=== PATIENT | female | born 1995 | race African-American/Black ===

== ENCOUNTER 2016-12-04 02:02 | Observation (INO) | payer MEDICAID ==
[~2016-12-04] VITALS: Ht 165.1 cm; Wt 72.6 kg
[2016-12-04] MEDS ORDERED: TERBUTALINE SULFATE 1MG/ML VIAL SUBCUT PRN (03:00)
[2016-12-04] MEDS ORDERED: LACTATED RINGERS 1,000 ML IV SCH (03:00)
[2016-12-04 03:06] LABS: CLARITY URINE CLOUDY (CLEAR); COLOR URINE YELLOW (YELLOW); GLUCOSE URINE NEGATIVE (NEGATIVE); KETONES URINE NEGATIVE (NEGATIVE); LEUKOCYTE ESTERASE URINE 3+ (NEGATIVE); NITRITE URINE NEGATIVE (NEGATIVE); OCCULT BLOOD URINE NEGATIVE (NEGATIVE); PROTEIN URINE NEGATIVE (NEGATIVE); SPECIFIC GRAVITY URINE 1.011 (1.005-1.030); UROBILINOGEN URINE 0.2 E.U./dL (0.2-1.0)
[2016-12-04 04:10] LABS: SQUAMOUS EPITHELIAL CELL URINE 3+ /lpf (RARE/1+)
[2016-12-04 04:12] LABS: RBC URINE 0-2 /hpf (0-2)
[2016-12-04 04:14] LABS: BACTERIA URINE 2+
[2016-12-04] MEDS ORDERED: CEFAZOLIN SODIUM 1000MG/VIAL IV ONE (04:30)
[2016-12-04] MEDS ORDERED: CEFAZOLIN 2000MG PREMIX 100 ML IV ONE (04:45)
[2016-12-04] MEDS ORDERED: CEFAZOLIN 2000MG in DEXTROSE 5% WATER 100ML IV NR (04:45)
== END 2016-12-04 05:20 | disposition home or self-care (01) ==
LOC: L&D 02:02
PROVIDERS: ADMIT Obstetrics & Gynecology; ATTEND Obstetrics & Gynecology
DX: O26.893 Other specified pregnancy related conditions, third trimester (principal); R10.30 Lower abdominal pain, unspecified; M54.9 Dorsalgia, unspecified; Z3A.38 38 weeks gestation of pregnancy
CPT/HCPCS: 76805; 76818; 81001; 96365; 96372; G0378; J0690; J3105; J7120; 96360; 96361; J7060

== ENCOUNTER 2017-05-24 12:08 | Emergency (ER) | payer MEDICAID ==
[~2017-05-24] VITALS: Ht 165.1 cm; Wt 77.0 kg
[2017-05-24] MEDS ORDERED: FAMOTIDINE 20MG/2ML VIAL IV STA (18:12)
[2017-05-24] MEDS ORDERED: MAGNESIUM/ALUMINUM HYDROXIDE/SIMETHICONE 30ML UDC PO STA (18:12)
[2017-05-24] MEDS ORDERED: ONDANSETRON HCL 4MG/2ML VIAL IV STA (18:12)
[2017-05-24] MEDS ORDERED: SODIUM CHLORIDE 0.9% 1,000 ML IV ONE (18:12)
[2017-05-24 19:21] LABS: CLARITY URINE TURBID (CLEAR); COLOR URINE YELLOW (YELLOW); GLUCOSE URINE NEGATIVE (NEGATIVE); KETONES URINE 4+ (NEGATIVE); LEUKOCYTE ESTERASE URINE 2+ (NEGATIVE); NITRITE URINE NEGATIVE (NEGATIVE); OCCULT BLOOD URINE 2+ (NEGATIVE); PROTEIN URINE 1+ (NEGATIVE); SPECIFIC GRAVITY URINE 1.043 (1.005-1.030); UROBILINOGEN URINE 0.2 E.U./dL (0.2-1.0)
[2017-05-24 19:25] LABS: BASOPHILS % 0.4 % (0.0-2.0); EOSINOPHILS % 0.2 % (0.0-5.0); HEMATOCRIT. 31.3 % (36.0-48.0); HEMOGLOBIN. 10.3 g/dL (12.0-16.0); LYMPHOCYTES % 20.2 % (20.0-50.0); MEAN CORPUSCULAR HEMOGLOBIN 25.8 pg (28.0-32.0); MEAN CORPUSCULAR VOLUME 78.4 fL (81.0-99.0); MEAN PLATELET VOLUME 7.8 fl (7.4-10.4); MONOCYTES % 3.2 % (2.0-8.0); PLATELET 298 x1000/uL (130-400); RED CELL DISTRIBUTION WIDTH 20.8 % (11.6-14.6)
[2017-05-24 19:29] LABS: CHLORIDE 105 mEq/L (98-107)
[2017-05-24 19:30] LABS: HCG SCREEN POSITIVE
[2017-05-24 19:35] LABS: CARBON DIOXIDE 22 mEq/L (21-32)
[2017-05-24 21:21] VITALS: BP 110/62
== END 2017-05-24 21:22 | disposition home or self-care (01) ==
LOC: ER 12:08
DX: O23.40 Unspecified infection of urinary tract in pregnancy, unspecified trimester (principal); O21.0 Mild hyperemesis gravidarum; O99.019 Anemia complicating pregnancy, unspecified trimester; D50.9 Iron deficiency anemia, unspecified; O26.899 Other specified pregnancy related conditions, unspecified trimester; J45.909 Unspecified asthma, uncomplicated; Z3A.00 Weeks of gestation of pregnancy not specified
CPT/HCPCS: 36415; 80053; 80307; 80329; 81001; 83690; 84703; 85025; 96361; 96374; 96375; 99285; J2405; J3490; J7030; Z7610

== ENCOUNTER 2017-06-22 23:36 | Observation (INO) | payer MEDICAID ==
[~2017-06-22] VITALS: Ht 165.1 cm; Wt 59.0 kg
[2017-06-23] MEDS ORDERED: SODIUM CHLORIDE 0.9% 1,000 ML IV SCH (00:30)
[2017-06-23] MEDS ORDERED: ACETAMINOPHEN 500MG TABLET PO NR (00:30)
[2017-06-23 01:45] LABS: CLARITY URINE CLEAR (CLEAR); COLOR URINE YELLOW (YELLOW); GLUCOSE URINE NEGATIVE (NEGATIVE); KETONES URINE TRACE (NEGATIVE); LEUKOCYTE ESTERASE URINE 2+ (NEGATIVE); NITRITE URINE NEGATIVE (NEGATIVE); OCCULT BLOOD URINE NEGATIVE (NEGATIVE); PROTEIN URINE NEGATIVE (NEGATIVE); SPECIFIC GRAVITY URINE 1.029 (1.005-1.030)
[2017-06-23] MEDS ORDERED: ACETAMINOPHEN WITH CODEINE 300/30MG TABLET PO NR (02:30)
[2017-06-23 02:45] VITALS: BP 102/70
[2017-06-23] MEDS ORDERED: CEFAZOLIN 2,000 MG in DEXT 5% WATER 100 ML IV NR (04:00)
== END 2017-06-23 04:15 | disposition home or self-care (01) ==
LOC: L&D 23:36
PROVIDERS: ADMIT Specialist; ATTEND Specialist
DX: O26.892 Other specified pregnancy related conditions, second trimester (principal); R10.30 Lower abdominal pain, unspecified; R10.9 Unspecified abdominal pain; Z3A.19 19 weeks gestation of pregnancy
CPT/HCPCS: 76805; 76817; 81001; 87086; 96361; 96365; 99281; G0378; J0690; J7030; 96360; J7060; J7120

== ENCOUNTER 2017-09-18 11:57 | Emergency (ER) | payer MEDICAID ==
[~2017-09-18] VITALS: Ht 167.6 cm; Wt 65.0 kg
[2017-09-18] MEDS ORDERED: ONDANSETRON HCL 4MG/2ML VIAL IV STA (14:23)
[2017-09-18] MEDS ORDERED: SODIUM CHLORIDE 0.9% 1,000 ML IV ONE (14:23)
[2017-09-18] MEDS ORDERED: ACETAMINOPHEN 325MG TABLET PO ONE (14:30)
[2017-09-18 15:13] LABS: BASOPHILS % 0.7 % (0.0-2.0); EOSINOPHILS % 0.6 % (0.0-5.0); HEMATOCRIT. 27.7 % (36.0-48.0); HEMOGLOBIN. 8.8 g/dL (12.0-16.0); LYMPHOCYTES % 11.6 % (20.0-50.0); MEAN CORPUSCULAR HEMOGLOBIN 22.6 pg (28.0-32.0); MEAN CORPUSCULAR VOLUME 71.7 fL (81.0-99.0); MEAN PLATELET VOLUME 7.9 fl (7.4-10.4); MONOCYTES % 5.1 % (2.0-8.0); PLATELET 196 x1000/uL (130-400); RED BLOOD CELL COUNT 3.87 mill/uL (4.2-5.4); RED CELL DISTRIBUTION WIDTH 16.8 % (11.6-14.6)
[2017-09-18 15:18] LABS: CHLORIDE 101 mEq/L (98-107)
[2017-09-18] MEDS ORDERED: OSELTAMIVIR 75MG CAPSULE PO ONE (16:30)
[2017-09-18 16:41] LABS: CLARITY URINE CLOUDY (CLEAR); COLOR URINE DARK YELLOW (YELLOW); KETONES URINE 4+ (NEGATIVE); LEUKOCYTE ESTERASE URINE 3+ (NEGATIVE); NITRITE URINE NEGATIVE (NEGATIVE); OCCULT BLOOD URINE NEGATIVE (NEGATIVE); PROTEIN URINE 1+ (NEGATIVE); SPECIFIC GRAVITY URINE 1.035 (1.005-1.030)
[2017-09-18 17:04] VITALS: BP 110/72
== END 2017-09-18 19:14 | disposition home or self-care (01) ==
LOC: ER 12:07
DX: O26.93 Pregnancy related conditions, unspecified, third trimester (principal); J10.1 Influenza due to other identified influenza virus with other respiratory manifestations; O21.8 Other vomiting complicating pregnancy; E86.0 Dehydration; J45.909 Unspecified asthma, uncomplicated; O23.43 Unspecified infection of urinary tract in pregnancy, third trimester; Z3A.32 32 weeks gestation of pregnancy
CPT/HCPCS: 36415; 80053; 81001; 83690; 85025; 87040; 87086; 87804; 96361; 96374; 99284; J2405; J7030

== ENCOUNTER 2017-10-13 18:22 | Observation (INO) | payer MEDICAID ==
[~2017-10-13] VITALS: Ht 65 cm; Wt 65.8 kg
[2017-10-13] MEDS ORDERED: SODIUM CHLORIDE 0.9% 1,000 ML IV SCH (19:15)
== END 2017-10-13 21:45 | disposition home or self-care (01) ==
LOC: L&D 18:22
PROVIDERS: ADMIT Specialist; ATTEND Specialist
DX: O62.9 Abnormality of forces of labor, unspecified (principal); Z3A.36 36 weeks gestation of pregnancy
CPT/HCPCS: 99281; G0378; J7030

== ENCOUNTER 2017-11-01 01:20 | Observation (INO) | payer MEDICAID ==
[~2017-11-01] VITALS: Ht 165.1 cm; Wt 65.8 kg
== END 2017-11-01 02:25 | disposition home or self-care (01) ==
LOC: L&D 01:20
PROVIDERS: ADMIT Obstetrics & Gynecology; ATTEND Obstetrics & Gynecology
DX: O26.893 Other specified pregnancy related conditions, third trimester (principal); R10.9 Unspecified abdominal pain; Z3A.38 38 weeks gestation of pregnancy
CPT/HCPCS: 99281; G0378

== ENCOUNTER 2017-11-05 22:56 | Observation (INO) | payer MEDICAID ==
[~2017-11-05] VITALS: Ht 165.1 cm; Wt 70.3 kg
== END 2017-11-06 01:55 | disposition home or self-care (01) ==
LOC: L&D 22:56
PROVIDERS: ADMIT Obstetrics & Gynecology; ATTEND Obstetrics & Gynecology
DX: O62.9 Abnormality of forces of labor, unspecified (principal); Z3A.39 39 weeks gestation of pregnancy
CPT/HCPCS: 76805; 76818; 99281; G0378

== ENCOUNTER 2017-11-06 11:04 | Inpatient (IN) | payer MEDICAID ==
[~2017-11-06] VITALS: Ht 165.1 cm; Wt 68.0 kg
[2017-11-06] MEDS ORDERED: LACTATED RINGERS 1,000 ML IV SCH ×2 (12:35→15:00)
[2017-11-06] MEDS ORDERED: CARBOPROST TROMETHAMINE 250 MCG/ML AMPUL IM PRN (12:45)
[2017-11-06] MEDS ORDERED: LIDOCAINE HCL 1% 20ML VIAL (Pyxis) INJ INFIL SCH (12:45)
[2017-11-06] MEDS ORDERED: PENICILLIN G POTASSIUM 5 MMU in DEXT 5% WATER 100 ML IV SCH (12:45)
[2017-11-06] MEDS ORDERED: NALOXONE HCL 0.4 MG/ML 1ML VIAL IM PRN (12:45)
[2017-11-06] MEDS ORDERED: BUTORPHANOL TARTRATE 2 MG/ML VIAL IV PRN (12:45)
[2017-11-06] MEDS ORDERED: METHYLERGONOVINE MALEATE 0.2 MG/ML IM PRN ×2 (12:45→19:00)
[2017-11-06 13:13] LABS: BASOPHILS % 0.7 % (0.0-2.0); CLARITY URINE CLOUDY (CLEAR); COLOR URINE YELLOW (YELLOW); EOSINOPHILS % 1.4 % (0.0-5.0); HEMATOCRIT. 27.8 % (36.0-48.0); HEMOGLOBIN. 8.9 g/dL (12.0-16.0); KETONES URINE NEGATIVE (NEGATIVE); LEUKOCYTE ESTERASE URINE 3+ (NEGATIVE); LYMPHOCYTES % 15.3 % (20.0-50.0); MEAN CORPUSCULAR HEMOGLOBIN 22.1 pg (28.0-32.0); MEAN CORPUSCULAR VOLUME 68.8 fL (81.0-99.0); MEAN PLATELET VOLUME 7.9 fl (7.4-10.4); MONOCYTES % 4.9 % (2.0-8.0); NEUTROPHILS % 77.7 % (40.0-76.0); NITRITE URINE NEGATIVE (NEGATIVE); OCCULT BLOOD URINE 1+ (NEGATIVE); PLATELET 352 x1000/uL (130-400); PROTEIN URINE NEGATIVE (NEGATIVE); RED BLOOD CELL COUNT 4.04 mill/uL (4.2-5.4); SPECIFIC GRAVITY URINE 1.014 (1.005-1.030); UROBILINOGEN URINE 0.2 E.U./dL (0.2-1.0)
[2017-11-06 13:20] LABS: INR 0.9; PARTIAL THROMBOPLASTIN TIME 24.8 sec (23.4-31.0); PROTHROMBIN TIME 9.4 sec (9.4-11.6)
[2017-11-06 13:23] LABS: CHLORIDE 105 mEq/L (98-107)
[2017-11-06 13:42] LABS: PLATELET ESTIMATE NORMAL
[2017-11-06 13:45] LABS: *AMPHETAMINES SCREEN URINE NEGATIVE (NEGATIVE); *BARBITURATES SCREEN URINE NEGATIVE (NEGATIVE); *BENZODIAZEPINES SCREEN URINE NEGATIVE (NEGATIVE); *COCAINE SCREEN URINE NEGATIVE (NEGATIVE); CANNABINOID URINE SCREEN NEGATIVE (NEGATIVE); METHADONE URINE SCREEN NEGATIVE (NEGATIVE); OPIATES URINE SCREEN NEGATIVE (NEGATIVE); PHENCYCLIDINE URINE SCREEN NEGATIVE (NEGATIVE)
[2017-11-06] MEDS ORDERED: FENTANYL CITRATE/PF 50MCG/ML 5ML VIAL ONE (13:46)
[2017-11-06] MEDS ORDERED: BUPIVACAINE HCL/NS/PF EPIDURAL 100 ML EP ONE (13:46)
[2017-11-06] MEDS ORDERED: BUPIVACAINE HCL/PF 0.25% (2.5MG/ML) 10ML ONE (13:46)
[2017-11-06] MEDS ORDERED: BUPIVACAINE HCL/NS/PF EPIDURAL 100 ML EP SCH (14:00)
[2017-11-06 14:02] LABS: RUBELLA IGG 8.2 IU/mL (4.99-10)
[2017-11-06 14:03] LABS: HEPATITIS B SURFACE ANTIGEN NEGATIVE
[2017-11-06] MEDS ORDERED: DEXT 5%/LR + PITOCIN 20UNITS/L 1,000 ML IV SCH ×2 (14:59→19:24)
[2017-11-06] MEDS ORDERED: LIDOCAINE HCL/PF 2% 20 MG/ML 10ML VIAL ONE (15:14)
[2017-11-06] MEDS ORDERED: PENICILLIN G POTASSIUM 2.5 MMU in DEXTROSE 5% WATER 50 ML IV SCH (17:00)
[2017-11-06] MEDS ORDERED: LANOLIN OINT 0.25 GM TUBE TOP PRN (19:00)
[2017-11-06] MEDS ORDERED: RHO(D) IMMUNE GLOBULIN 300 MCG/SYR IM PRN (19:00)
[2017-11-06] MEDS ORDERED: IBUPROFEN 400MG TABLET PO PRN (19:00)
[2017-11-06] MEDS: IBUPROFEN 800MG TABLET PO PRN (20:15)
[2017-11-06 21:00] VITALS: BP 118/62
[2017-11-07 00:01] VITALS: BP 116/54
[2017-11-07] MEDS: IBUPROFEN 800MG TABLET PO PRN ×3 (05:08→23:12)
[2017-11-07 07:25] LABS: BASOPHILS % 0.5 % (0.0-2.0); EOSINOPHILS % 0.8 % (0.0-5.0); HEMATOCRIT. 22.6 % (36.0-48.0); HEMOGLOBIN. 7.1 g/dL (12.0-16.0); LYMPHOCYTES % 14.6 % (20.0-50.0); MEAN CORPUSCULAR HEMOGLOBIN 21.9 pg (28.0-32.0); MEAN CORPUSCULAR VOLUME 69.4 fL (81.0-99.0); MONOCYTES % 4.1 % (2.0-8.0); PLATELET 274 x1000/uL (130-400); RED BLOOD CELL COUNT 3.26 mill/uL (4.2-5.4); RED CELL DISTRIBUTION WIDTH 18.6 % (11.6-14.6)
[2017-11-07 07:47] VITALS: BP 107/61
[2017-11-07] MEDS ORDERED: PRENATAL VIT/FE FUMARATE/FA TABLET PO SCH (09:00)
[2017-11-07 16:09] VITALS: BP 95/51
[2017-11-07] MEDS ORDERED: HYDROCODONE/ACETAMINOPHEN 10/325MG TABLET PO NR (16:26)
[2017-11-07] MEDS ORDERED: MEASLES,MUMPS&RUBELLA VACCINE 1 VIAL SUBCUT ONE (17:15)
[2017-11-07] MEDS ORDERED: INFLUENZA VIRUS VACCINE 0.5ML SYR IM ONE (19:15)
[2017-11-07 22:00] VITALS: BP 104/67
[2017-11-08 06:00] VITALS: BP 103/69
[2017-11-08] MEDS: IBUPROFEN 800MG TABLET PO PRN (07:24)
[2017-11-08 08:00] VITALS: BP 104/75
[2017-11-08] MEDS ORDERED: TETANUS, DIPHTHERIA, PERTUSSIS VAC/PF 0.5ML (>7YR OLD) IM ONE (08:00)
== END 2017-11-08 13:00 | disposition home or self-care (01) | DRG 560 ==
LOC: OBSVTOIN 11:04 → L&D 11:04 → 7EST PP/OB 22:30
PROVIDERS: ADMIT Obstetrics & Gynecology; ATTEND Obstetrics & Gynecology
PROC: 3E0R3BZ Introduction of Anesthetic Agent into Spinal Canal, Percutaneous Approach (ICD-10-PCS; 2017-11-06)
PROC: 00HU33Z Insertion of Infusion Device into Spinal Canal, Percutaneous Approach (ICD-10-PCS; 2017-11-06)
PROC: 10E0XZZ Delivery of Products of Conception, External Approach (ICD-10-PCS; principal; 2017-11-06 18:22)
DX: O99.02 Anemia complicating childbirth (principal); O71.4 Obstetric high vaginal laceration alone; D64.9 Anemia, unspecified; J45.909 Unspecified asthma, uncomplicated; O99.52 Diseases of the respiratory system complicating childbirth; Z37.0 Single live birth; Z3A.39 39 weeks gestation of pregnancy; O70.0 First degree perineal laceration during delivery
CPT/HCPCS: 36415; 80053; 80305; 81003; 85025; 85610; 85730; 86592; 86703; 86762; 86850; 86900; 87340; 90707; G0378; J2540; J2590; J3010; J3490; J7060; J7120

== ENCOUNTER 2018-03-28 08:44 | Emergency (ER) | payer MEDICAID ==
[~2018-03-28] VITALS: Ht 165.1 cm; Wt 61.0 kg
[2018-03-28] MEDS ORDERED: ACETAMINOPHEN 325MG TABLET PO ONE (09:15)
[2018-03-28 09:33] VITALS: BP 109/57
== END 2018-03-28 09:34 | disposition home or self-care (01) ==
LOC: ER 09:02
DX: O99.611 Diseases of the digestive system complicating pregnancy, first trimester (principal); K05.10 Chronic gingivitis, plaque induced; O26.891 Other specified pregnancy related conditions, first trimester; R51 Headache; O99.321 Drug use complicating pregnancy, first trimester; F12.10 Cannabis abuse, uncomplicated; Z3A.01 Less than 8 weeks gestation of pregnancy
CPT/HCPCS: 81025; 99283

== ENCOUNTER 2018-07-15 20:50 | Observation (INO) | payer MEDICAID ==
[~2018-07-15] VITALS: Ht 165.1 cm; Wt 63.5 kg
== END 2018-07-15 22:10 | disposition home or self-care (01) ==
LOC: L&D 20:50
PROVIDERS: ADMIT Obstetrics & Gynecology; ATTEND Obstetrics & Gynecology
DX: O46.92 Antepartum hemorrhage, unspecified, second trimester (principal); Z3A.21 21 weeks gestation of pregnancy
CPT/HCPCS: 99281; G0378

== ENCOUNTER 2019-08-27 18:05 | Emergency (ER) | payer MEDICAID | END 2019-08-27 19:12 | disposition left against medical advice (07) | LOC: ER 18:05 | DX: Z53.21 Procedure and treatment not carried out due to patient leaving prior to being seen by health care provider (principal) ==

== ENCOUNTER 2019-08-27 20:27 | Emergency (ER) | payer MEDICAID ==
[~2019-08-27] VITALS: Ht 165.1 cm; Wt 64.0 kg
[2019-08-27 20:48] VITALS: BP 117/64
== END 2019-08-28 03:29 | disposition left against medical advice (07) ==
LOC: ER 20:27
DX: N93.8 Other specified abnormal uterine and vaginal bleeding (principal); Z53.21 Procedure and treatment not carried out due to patient leaving prior to being seen by health care provider